=== PATIENT | male | born 1940 | race African-American/Black ===

== ENCOUNTER 2024-01-29 11:45 | Emergency (ER) | payer OTHER ==
[~2024-01-29] VITALS: Ht 182.9 cm; Wt 70.0 kg
[2024-01-29 11:50] VITALS: O2SAT 93
[2024-01-29] MEDS ORDERED: VANCOMYCIN 1G PREMIX 200 ML IV ONE (12:30)
[2024-01-29 13:09] LABS: BASOPHILS % 0.2 % (0.0-2.0); HEMATOCRIT. 29.6 % (42.0-52.0); LYMPHOCYTES % 17.9 % (20.0-50.0); MEAN CORPUSCULAR HEMOGLOBIN 26.4 pg (28.0-32.0); MEAN CORPUSCULAR HGB CONC 30.3 g/dL (31.0-37.0); MEAN CORPUSCULAR VOLUME 87.1 fL (80.0-94.0); MEAN PLATELET VOLUME 8.2 fl (7.4-10.4); MONOCYTES % 3.8 % (2.0-8.0); NEUTROPHILS % 78.1 % (40.0-76.0); RED CELL DISTRIBUTION WIDTH 18.8 % (11.6-14.6); WHITE BLOOD COUNT 26.2 x1000/uL (4.5-11.0)
[2024-01-29 13:16] LABS: CHLORIDE 101 mEq/L (98-107); INR 1.2; POTASSIUM 4.5 mEq/L (3.5-5.1); SODIUM 133 mEq/L (136-145)
[2024-01-29 13:17] LABS: CARBON DIOXIDE 22 mEq/L (21-32)
[2024-01-29 13:18] LABS: CALCIUM 9.1 mg/dL (8.7-10.4)
[2024-01-29 13:22] LABS: CREATININE 0.7 mg/dL (0.6-1.3); GLUCOSE 110 mg/dL (70-105)
[2024-01-29 13:23] LABS: TROPONIN I HIGH SENSITIVITY 6 ng/L (3.0-53); UREA NITROGEN BLOOD 10 mg/dL (9-23)
[2024-01-29 13:24] LABS: ALANINE AMINOTRANSFERASE 22 IU/L (10-49); ALBUMIN 3.7 g/dL (3.2-4.8); ASPARTATE AMINOTRANSFERASE 22 IU/L (<34); CREATINE KINASE 23 IU/L (46-171); DIFFERENTIAL COMMENT 1; LACTATE DEHYDROGENASE 192 IU/L (120-246)
[2024-01-29 13:25] LABS: BILIRUBIN DIRECT 0.1 mg/dL (<=3.0); BILIRUBIN TOTAL 0.3 mg/dL (0.1-1.0); PROTEIN TOTAL 7.8 g/dL (6.0-8.3)
[2024-01-29] MEDS: SODIUM CHLORIDE 0.9% 1000ML BAG (SEPSIS BOLUS) IV ONE (13:45)
[2024-01-29] MEDS: PIPERACILLIN/TAZO 3.375G/50ML 50 ML IV ONE (13:55)
[2024-01-29 14:02] LABS: LACTIC ACID 5.7 mmol/L (0.4-2.0)
[2024-01-29] MEDS: VANCOMYCIN 1G PREMIX 200 ML IV NR (14:53)
[2024-01-29 16:20] VITALS: BP 140/57; PULSE 73; RESP 14; TEMP 98.4
[2024-01-30 13:45] LABS: PLATELET 1048 x1000/uL (130-400)
== END 2024-01-29 18:33 | disposition short-term general hospital (02) ==
LOC: ER 11:45 → 5WST 16:41 → UNDOADMIN 16:41 → ER 18:33 → UNDODISIN 18:50
DX: A41.9 Sepsis, unspecified organism (principal); R65.20 Severe sepsis without septic shock; D75.839 Thrombocytosis, unspecified; J18.9 Pneumonia, unspecified organism; K56.41 Fecal impaction; E78.00 Pure hypercholesterolemia, unspecified; I10 Essential (primary) hypertension; N40.0 Benign prostatic hyperplasia without lower urinary tract symptoms; Z20.822 Contact with and (suspected) exposure to COVID-19; Z85.819 Personal history of malignant neoplasm of unspecified site of lip, oral cavity, and pharynx; Z87.01 Personal history of pneumonia (recurrent); Z85.21 Personal history of malignant neoplasm of larynx
CPT/HCPCS: 99291; 74176; 96365; 71045; 96367; 87426; 80076; 80048; 82550; 83880; 83605; 83615; 85025; 85610; 87040; 84484; 87804 ×2; 36415; 84145; 93005; J2543; J3370; J7030